=== PATIENT | female | born 1935 | race African-American/Black ===

== ENCOUNTER 2022-05-17 10:44 | Emergency (ER) | payer MEDICARE, MEDICAID ==
[~2022-05-17] VITALS: Ht 157.5 cm; Wt 75.0 kg
[~2022-05-17 10:44] MED LIST: FURO-151 PO; GABA100C PO; POTA10TA20 PO; VALS40TA4 PO
[2022-05-17 10:54] VITALS: BP 146/80
== END 2022-05-17 17:36 | disposition left against medical advice (07) ==
LOC: ER 10:44
DX: Z53.21 Procedure and treatment not carried out due to patient leaving prior to being seen by health care provider (principal); I49.9 Cardiac arrhythmia, unspecified
CPT/HCPCS: 93005